=== PATIENT | male | born 1990 | race Caucasian/White ===

== ENCOUNTER 2018-11-06 19:29 | Emergency (ER) | payer MEDICAID ==
[~2018-11-06] VITALS: Ht 185.4 cm; Wt 98.0 kg
[2018-11-06 19:50] VITALS: BP_SYST 125
[2018-11-06] MEDS ORDERED: KETOROLAC TROMETHAMINE 60 MG/2 ML VIAL IM ONE (20:30)
[2018-11-06 20:56] VITALS: BP_SYST 121
== END 2018-11-06 20:56 | disposition home or self-care (01) ==
LOC: SED 19:29
DX: S70.12XA Contusion of left thigh, initial encounter (principal); R03.0 Elevated blood-pressure reading, without diagnosis of hypertension; W19.XXXA Unspecified fall, initial encounter; Y93.39 Activity, other involving climbing, rappelling and jumping off; Y92.89 Other specified places as the place of occurrence of the external cause; Y99.8 Other external cause status
CPT/HCPCS: 73552; 99283; J1885